=== PATIENT | female | born 1955 | race Caucasian/White ===

== ENCOUNTER 2024-08-01 12:39 | Observation (INO) | payer MEDICARE, SELFPAY ==
[2024-08-01] VITALS (9 sets, daily range): BP systolic 103–145; BP diastolic 70–97; PULSE 73–95; RESP 14–18; TEMP 36.1–37.1; O2SAT 95–99; BMI 36.6; BMI 36.3
--- NOTE | 2024-08-01 13:55 | EKG12_ITS ---
Test Reason : Blood Pressure : / mmHG Vent. Rate : 088 BPM Atrial Rate : 088 BPM P-R Int : 174 ms QRS Dur : 070 ms QT Int : 352 ms P-R-T Axes : 006 -42 007 degrees QTc Int : 425 ms Normal sinus rhythm Left axis deviation Low voltage QRS Cannot rule out Anterior infarct , age undetermined Abnormal ECG Confirmed by ELENA LANE, MANGO ([id number]), editor farm journal MATEO LOPEZ ([id number]) on 08/04/2024 1:55:28 PM Referred By: Confirmed By:MANGO PARKER MD
--- NOTE | 2024-08-01 13:55 | RAD_ITS ---
STUDY: X-RAY CHEST REASON FOR EXAM: Female, 68 years old. painful in chest when breathing TECHNIQUE: PA and lateral views of the chest. COMPARISON: None. FINDINGS: The lungs are clear and expanded. There is no demonstrated pleural abnormality. Normal size heart. Moderate-sized hiatal hernia. Normal visualized pulmonary arteries. Normal visualized aortic arch and descending thoracic aorta. Normal visualized thoracic spine. Normal visualized ribs, clavicles, and shoulders. There is no demonstrated abnormality of the visualized soft tissue structures of the upper abdomen. RAD/Chest PA and Lateral IMPRESSION: No active disease. Electronically Signed: Byron Suresh MD at 16:40 EDT ,
--- NOTE | 2024-08-01 13:57 | EDS_ITS ---
<Statement entered by Richard Quiroz, - 08/02/24 15:16> Supervisory Physician Note Patient was seen and examined with the Advanced Practice Provider. Nursing notes and vital signs have been reviewed. Pertinent old records have been reviewed. I agree with the essential elements of the NAVIN's history, physical exam, assessment, and plan. The differential diagnosis and management options were discussed with the NAVIN. I participated in determining and agree with the management, procedures, final impression and disposition as documented. See changes noted by me. Please see addendum or separate note for any additional details. 68-year-old female with no significant past medical history presents for evaluation of epigastric/chest pain as well as shortness of breath. Patient states that she recently returned from [place] which was a 17-hour car ride. Patient states 3 days ago she developed epigastric/chest pain. Pain is worse with inspiration. She endorses decreased appetite secondary to the pain. Denies any fever, chills, nausea, vomiting, diarrhea, constipation. Denies URI symptoms. Gen: A&O x3, NAD Head: Normocephalic, atraumatic Eyes: No sclera icterus, conjunctiva clear ENT: Moist mucous membranes Neck: Trachea midline, No JVD CV: RRR, no murmurs, no peripheral edema Resp: Lungs CTA BL, no w/r/c GI: Abd soft, non-distended, tender to palpation in the epigastrium and right upper quadrant, + voluntary guarding, no rebound or rigidity Musc: Full ROM, no deformity Skin: Warm, dry, non jaundice Neuro: Alert, oriented, grossly intact, sensation intact Psych: Cooperative, appropriate mood and affect Differential diagnosis includes but is not limited to gastritis, pancreatitis, cholecystitis, ACS, PE. IV fluids, Zofran, Toradol ordered for symptoms. CBC with leukocytosis of 17.5. No anemia. CMP shows dehydration without ALEAH. No transaminitis. Bilirubin elevated at 1.3. Troponin unremarkable. Lipase elevated at 385 which is consistent with pancreatitis. D-dimer elevated at 1.67. Given patient's shortness of breath with recent travel cannot rule out PE. CTA chest ordered. UA shows dirty sample given large squamous epithelial cells. However patient does have WBCs and bacteria. With her leukocytosis we will give IV Zosyn to cover for UTI as well as any GI pathology. CT abdomen pelvis shows large gastric hernia in the posterior mediastinum. Patient states she does have a history of a hernia. She has a lesion in the right anterior renal parenchymal however no follow-up necessary per radiology. Patient has sm all calcified gallstones layering in the dependent portion of the nondilated gallbladder. No gallbladder wall thickening or pericholecystic edema. Given patient's pancreatitis, tenderness in the right upper quadrant, and leukocytosis we will get ultrasound of the abdomen as this is better to assess for cholecystitis. CTA chest without PE. Ultrasound of the gallbladder shows moderate distention. Multiple gallstones. No dilation of the common bile duct per patient age. Patient still having abdominal pain. Patient will require admission for suspected gallstone pancreatitis. Hospitalist accepted admission. Impression: 1. Acute pancreatitis, suspect gallstone pancreatitis 2. UTI 3. Cholelithiasis 4. Large hiatal hernia 5. Dehydration HPI History of Present Illness Chief Complaint: Chest Pain Narrative Narrative: Patient is a 68-year-old female does not take any medications daily presenting to the emergency department for dyspnea, chest pain, low upper abdominal pain. Patient was recently in [place], he did drive 17 hours, patient was on amoxicillin recently secondary to a tooth infection. Patient states this Saturday which was 3 days ago, the patient continued to have this pain worse with inspiration. Patient denies any fever chills nausea or vomiting. Patient states she did have some generalized bodyaches. Denies any new cough. [facility] Medical History no medical history Home Medications ?Medication ?Instructions ?Recorded ?Last Taken ?Type NK 08/01/24 Unknown History Allergy/AdvReac Type Severity Reaction Status Date / Time No Known Allergies Allergy Verified 08/01/24 12:40 Family History no significant family his Surgical History no surgical history Social History Smoking Status: Never smoker ROS ROS ED ROS Narrative Constitutional: Negative for fever, chills, weight loss, weakness Eyes: Negative for vision loss, vision change, double vision ENT: Negative for any sore throat, ear pain, congestion Cardiovascular: Negative for any palpitations. Positive chest pain, tightness Respiratory: Negative for any cough, sputum production, hemoptysis, dyspnea on exertion, orthopnea. Positive for dyspnea, patient inspiration Gastrointestinal: Negative for any nausea, vomiting, diarrhea, constipation, blood in stool, blood in vomit. Positive for upper abdominal pain : Negative for any urinary frequency, dysuria, retention, blood in urine Muscle skeletal: Negative for any neck pain, back pain. Positive generalized myalgias Neurological: Negative for any headache, syncope, dizziness Skin: Negative for any rashes, itching, abrasions, lacerations Psychiatric: Negative for any depression, anxiety, stress, suicidal ideation, homicidal ideation Hematologic: Negative for any excessive bruising, easy bleeding EXAM Physical Exam Narrative Exam Narrative: Vital signs reviewed. Patient appeared to be in no obvious distress, patient speaking complete sentences. HEET: Head normocephalic atraumatic, TMs clear bilaterally. Posterior pharynx is clear, moist mucous membranes. Nares clear bilaterally. Neck: Supple with no lymphadenopathy or tenderness. No signs of meningismus. Cardiac: Regular rate and rhythm no murmurs gallops or rubs, equal peripheral pulses bilaterally. Respiratory: Rhonchorous breath sounds to bilateral lower lobes, no chest tenderness. Abdomen: Soft, nondistended. No abdominal bruit or pulsatile masses. No hepatosplenomegaly. Tenderness to the epigastric area Extremities: No peripheral edema, no signs of gross trauma or deformity. Active full range of motion of all extremities. Neuro: Cranial nerves II through XII intact, no focal neurological deficits. Skin: Clean dry and intact with no rash, purpura, petechiae, vesicles or pustules. Backs/flank: No CVA tenderness, no midline spinal tenderness, no deformity. Psych: Normal mood and affect. No SI, HI or acute psychosis. Const Vital Signs: 08/01/24 12:40 08/01/24 14:10 08/01/24 14:40 Temperature 97 F L Temperature Source Temporal Pulse Rate 93 73 Respiratory Rate 14 Respiratory Effort Normal Non-Labored Blood Pressure 137/89 H 120/86 H Blood Pressure Mean 105 97 Pulse Ox 99 98 Oxygen Delivery Method Room Air Room Air 08/01/24 16:00 08/01/24 18:00 Temperature Temperature Source Pulse Rate 86 78 Respiratory Rate Respiratory Effort Blood Pressure 140/84 H 145/97 H Blood Pressure Mean 102 113 Pulse Ox 96 96 Oxygen Delivery Method Room Air Room Air [facility] Lab Data Labs: Laboratory Results - last 24 hr 08/01/24 08/01/24 13:32 14:12 WBC 17.5 H RBC 4.55 Hgb 13.4 Hct 40.1 MCV 88.1 MCH 29.5 MCHC 33.4 RDW Std Deviation 46.2 H RDW Coeff of Corry 14.3 Plt Count 369 MPV 9.9 Immature Gran % (Auto) 0.500 Neut % (Auto) 77.8 H Lymph % (Auto) 11.5 L Loving % (Auto) 8.2 Eos % (Auto) 1.7 Baso % (Auto) 0.3 Absolute Neuts (auto) 13.6 H Absolute Lymphs (auto) 2.01 Nucleated RBC % 0 D-Dimer Quant (PE/DVT) 1.67 H* Sodium 133 L Potassium 3.3 L Chloride 100 Carbon Dioxide 26.0 Anion Gap 7 BUN 9 Creatinine 0.77 Estim Creat Clear Calc 73.86 Est GFR (MDRD) Af Amer 95 Est GFR (MDRD) Non-Af 79 BUN/Creatinine Ratio 11.7 Glucose 103 Calcium 9.6 Total Bilirubin 1.30 H AST 24 ALT 25 Alkaline Phosphatase 77 Troponin I High Sens 3 Total Protein 8.2 Albumin 3.7 Globulin 4.5 H Albumin/Globulin Ratio 0.8 L Lipase 385 H Urine Color Yellow Urine Clarity Sl. Cloudy Urine pH 6.0 Ur Specific [place] 1.020 Urine Protein 30 H Urine Glucose (UA) Normal Urine Ketones 50 H Urine Occult Blood 150 H Urine Nitrite Negative Urine Bilirubin Negative Urine Urobilinogen Normal Ur Leukocyte Esterase 500 H Urine RBC 5-10 SEEN Urine WBC 25-50 SEEN Ur Squamous Epith Cells 10-25 SEEN Ur Transition Epith Cell 5-10 SEEN Ur Renal Epithelial Cell 0-5 SEEN Urine Bacteria 2+ Urine Mucus 1+ Radiography Diagnostic Testing: Clinical Impression(s) from Imaging Studies Chest X-Ray 08/01/24 13:55 IMPRESSION: No active disease. Electronically Signed: Byron Suresh MD at 16:40 EDT , Abdomen/Pelvis CT 08/01/24 14:58 IMPRESSION: 1. Large gastric hernia in the posterior mediastinum. 2. Small nonenhancing low-attenuation lesion in the right anterior renal parenchyma is too small to confirm cystic or solid. ACR White Paper guidelines (Hussein, et al. JACR 2018; 15(2):264-273) suggest no follow-up is necessary. 3. Small calcified gallstones layering in the dependent portion of the nondilated gallbladder fossa without gallbladder wall thickening or pericholecystic edema. 4. No suspicious acute abnormality in the abdomen and pelvis. Electronically Signed: Roberto Webber MD at 16:08 EDT , Chest CTA 08/01/24 14:58 IMPRESSION: 1. No CTA evidence of pulmonary thromboemboli, thoracic aortic aneurysm or dissection. 2. No acute cardiopulmonary pathology. 3. Large gastric hernia in the posterior mediastinum. 4. And large right thyroid lobe containing multiple low-attenuation nodules. The dominant nodule measures 3.5 x 3.5 cm. ACR White Paper guidelines (Omar NicholsK, et al. JACR 2015;12(2):143-50) suggest further evaluation with thyroid ultrasound. Electronically Signed: Roberto Webber MD at 16:04 EDT , Gallbladder Ultrasound 08/01/24 16:23 IMPRESSION: 1. Multiple mobile gallstones. No sonographic Bah sign or ductal dilatation. No pericholecystic fluid. 2. Hepatomegaly without intrahepatic masses or ductal dilatation. 3. Normal appearance of the RIGHT kidney. 4. The pancreas is obscured due to shadowing bowel gas. Electronically Signed: Byron Novoa MD at 19:35 EDT , Treatment and Re-Evaluation :: Differential diagnosis includes however is not limited to: Pulmonary embolus, COVID-19, influenza, RSV, community-acquired pneumonia, acute cholecystitis Patient appears generally well, vital signs are stable, patient is nontoxic- appearing. Presenting to the emergency department complaints of pain with inspiration, epigastric pain, upper abdominal pain ever since the last 3 to 4 days. Secondary the patient's history of travel, I do believe that a D-dimer is necessary to rule out any pulmonary embolus. Patient received a troponin, as well as upper abdominal labs. Patient given IV fluids, IV Zofran, Toradol. Patient was given two-view chest x-ray. All radiologic examinations were read, reviewed by the emergency department attending. From these reads, a plan of care will be put in place. Patient's laboratory values showed a leukocytosis with white blood count of 17.5, patient's D-dimer was elevated 1.67, sodium 133 the potassium 3.3, total bilirubin was elevated at 1.3, lipase 385. There is concern for pancreatitis. However patient did have elevated D-dimer. At this time, patient will receive a CTA of the chest to rule out any pulmonary embolus, patient also receive a CT scan of the abdomen pelvis secondary to the elevated lipase as well as leukocytosis. Patient did receive a ultrasound of the right upper quadrant, multiple mobile gallstones, no sonographic Bah sign or ductal dilatation. No pericholecystic fluid. Hepatomegaly a without intrahepatic masses or ductal dilatation. Normal appearance of the right kidney. The pancreas is obscured due to shadowing of the bowel gas. I will reach out for admission. Patient be started on IV Zosyn, this will cover both any GI and urinalysis. Patient is stable for admission. Discharge Plan Triage Chief Complaint: Chest Pain ED Midlevel Provider: Ronny Walton ED Provider: Richard Quiroz Dx/Rx/DC Orders Clinical Impression: Chest pain, Acute pancreatitis, Acute UTI Prescriptions: No Action NK
[2024-08-01] MEDS: Ketorolac 15 MG/ML Vial IV (14:02)
[2024-08-01] MEDS: 0.9% Normal Saline (1000mL) 1,000 ML 999 ML IV (14:02)
[2024-08-01] MEDS: Ondansetron 4 MG/2 ML Vial IV (14:02)
[2024-08-01 14:06] LABS: Absolute Lymphocyte Count 2.01 X10^3/uL (0.83-4.51); Absolute Neutrophil Count 13.6 X10^3/uL (2.0-7.7); Basophil# 0.05 X10^3/uL; Basophil% 0.3 % (0-1); Eosinophils% 1.7 % (0-5); Hematocrit 40.1 % (37-47); Hemoglobin 13.4 g/dL (12.0-15.0); Lymphocyte # 2.01 X10^3/ul (0.83-4.51); Lymphocyte % 11.5 % (19-41); Mean Corp Hgb Conc 33.4 g/dL (32-36); Mean Corpuscular Hgb 29.5 pg (27.0-32.0); Mean Corpuscular Volume 88.1 fL (81-99); Mean Platelet Vol. 9.9 fl (6.2-12.0); Monocyte# 1.44 X10^3/uL; Monocyte% 8.2 % (0-10); NRBC Flagged by Analyzer 0 % (0-5); Neutrophil # 13.59 X10^3/uL (2.7-7.7); Neutrophil % 77.8 % (47-70); Platelet Count 369 K/mm3 (150-450); RBC Distribution Width CV 14.3 % (11.6-14.6); RBC Distribution Width SD 46.2 fl (35.1-43.9); Red Blood Count 4.55 M/mm3 (4.2-5.4); White Blood Count 17.5 K/mm3 (4.4-11.0)
[2024-08-01 14:20] LABS: Color, Urine Yellow (Yellow); Glucose, Dipstick Normal (Normal); Ketone-Dipstick 50 mg/dl (Negative); Leukocyte Esterase-Dipstick 500 /ul (Negative); Nitrite-Dipstick Negative (Negative); Occult Blood-Urine 150 /ul (Negative); Protein-Dipstick 30 mg/dl (Negative); Urine Bilirubin Dipstick Negative (Negative); Urine Clarity Sl. Cloudy (Clear); Urine Urobilinogen Normal (Normal)
[2024-08-01 14:30] LABS: ALB/GLOB Ratio 0.8 RATIO (0.9-2.4); AST(SGOT) 24 U/L (15-37); Alanine Aminotransfer ALT/SGPT 25 U/L (13-56); Albumin, Serum 3.7 g/dL (3.2-5.0); Alkaline Phosphatase 77 U/L (45-117); Anion Gap 7 (5-15); BUN 9 mg/dL (7-18); BUN/Creat Ratio 11.7 RATIO (10-20); Calcium,Total 9.6 mg/dL (8.5-10.1); Chloride 100 mmol/L (98-107); Creatinine, Serum 0.77 mg/dL (0.55-1.02); EST Glomerular Filtration Rate 79 mL/min (>60); Est Glom Filt Rate - Afr Amer 95 mL/min (>60); Estimated Creatinine Clearance 73.86 ml/min; Globulin 4.5 g/dL (2.2-4.2); Glucose 103 mg/dL (74-106); Lipase 385 U/L (13-75); Potassium 3.3 mmol/L (3.5-5.1); Protein, Total 8.2 g/dL (6.4-8.2); Sodium Level 133 mmol/L (136-145); Troponin-I HS 3 pg/mL (3.0-54.0)
[2024-08-01 14:39] LABS: White Blood Cells 25-50 SEEN /hpf (0-5)
[2024-08-01 14:40] LABS: Red Blood Cells-Urine 5-10 SEEN /hpf (0-5)
[2024-08-01 14:41] LABS: Squamous Epithelial Cells - UA 10-25 SEEN /hpf (5-10)
[2024-08-01 14:42] LABS: Bacteria 2+ /hpf (None Seen); Renal Epithelial Cells 0-5 SEEN /hpf (0-5); Transitional Epithelial - Ur 5-10 SEEN /hpf (0-5)
[2024-08-01 14:44] LABS: Mucous, Urine 1+ /hpf (<or=2+)
[2024-08-01 14:57] LABS: D-Dimer Quantitative (DVT/PE) 1.67 FEU/ug/m (0.27-0.49)
--- NOTE | 2024-08-01 14:58 | CT_ITS ---
EXAM: CT ANGIOGRAPHY CHEST WITHOUT AND WITH INTRAVENOUS CONTRAST CLINICAL INDICATION: elevated DImer TECHNIQUE: Helically acquired angiography images were obtained of the chest without and with intravenous contrast. This CT exam was performed using one or more of the following dose reduction techniques: automated exposure control, adjustment of the mA and/or kV according to patient size, and/or use of iterative reconstruction technique. MIP reconstructed images were created and reviewed. CONTRAST: IV 100mL Isovue-370 RADIATION DOSE: CTDIvol = 17.82 mGy, DLP = 1633.52 mGy-cm COMPARISON: No relevant prior studies available. FINDINGS: PULMONARY ARTERIES: Unremarkable. Normal in caliber. No evidence of pulmonary embolism. AORTA: Unremarkable. Normal in caliber. No evidence of dissection. GREAT VESSELS OF AORTIC ARCH: Unremarkable. Normal in caliber. No evidence of dissection. LUNGS AND PLEURAL SPACES: Enlarged right thyroid lobe containing multiple low-attenuation nodules. The dominant nodule measures 3.5 x 3.5 cm. This is causing tracheal shift to the left. No pleural effusion or thickening. No pneumothorax. HEART: Mild cardiomegaly. No pericardial effusion. No significant coronary artery calcifications. MEDIASTINUM: Unremarkable. No mediastinal or hilar adenopathy. Esophagus is unremarkable. No hiatal hernia. THYROID: Unremarkable. No thyroid lesions. 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 Anterior T9 benign vertebral body hemangioma. No lytic or blastic lesions. SOFT TISSUES: Large gastric hernia. CT/CTA Chest W/WO Contrast IMPRESSION: 1. No CTA evidence of pulmonary thromboemboli, thoracic aortic aneurysm or dissection. 2. No acute cardiopulmonary pathology. 3. Large gastric hernia in the posterior mediastinum. 4. And large right thyroid lobe containing multiple low-attenuation nodules. The dominant nodule measures 3.5 x 3.5 cm. ACR White Paper guidelines (Nelson JK, et al. JACR 2015;12(2):143-50) suggest further evaluation with thyroid ultrasound. Electronically Signed: Roberto Webber MD at 16:04 EDT ,
--- NOTE | 2024-08-01 14:58 | CT_ITS ---
EXAM: CT ABDOMEN AND PELVIS WITH INTRAVENOUS CONTRAST CLINICAL INDICATION: upper abdominal pain TECHNIQUE: Helically acquired images were obtained of the abdomen and pelvis with intravenous contrast. This CT exam was performed using one or more of the following dose reduction techniques: automated exposure control, adjustment of the mA and/or kV according to patient size, and/or use of iterative reconstruction technique. CONTRAST: IV 100mL Isovue-370 RADIATION DOSE: CTDIvol = 17.82 mGy, DLP = 1633.52 mGy-cm COMPARISON: No relevant prior studies available. FINDINGS: LOWER THORAX: Unremarkable. Lung bases are clear. No cardiomegaly. No significant pericardial effusion. ABDOMEN: LIVER: Unremarkable. Homogeneous. No focal mass. GALLBLADDER AND BILE DUCTS: Small calcified gallstones layering in the dependent portion of the gallbladder fossa. No intrahepatic or extrahepatic biliary ductal dilatation. No gallbladder distention or wall edema. PANCREAS: Unremarkable. No focal cystic or solid mass. SPLEEN: Unremarkable. Normal size without focal cystic or solid mass. ADRENALS: Unremarkable. No nodules. KIDNEYS AND URETERS: Small nonenhancing low-attenuation lesion in the right anterior renal parenchyma is too small to confirm cystic or solid. No stones or hydronephrosis in both kidneys. No mass in both kidneys. STOMACH AND BOWEL: Unremarkable. No stomach or bowel distention. No focal inflammatory change. PELVIS: APPENDIX: Normal. BLADDER: Unremarkable. REPRODUCTIVE: Unremarkable as visualized. No mass. ABDOMEN and PELVIS: INTRAPERITONEAL SPACE: Unremarkable. No ascites or other fluid collection. No free air. 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 Diffuse degenerative disc space height narrowing with degenerative vacuum phenomenon at T12-L1 down to L5-S1 disc space levels. No suspicious lytic or blastic abnormality. SOFT TISSUES: Large gastric hernia in the posterior mediastinum. VASCULATURE: Unremarkable. Abdominal aorta is non-dilated. LYMPH NODES: Unremarkable. No enlarged lymph nodes. CT/Abdomen/Pelvis W IV Cont ONLY IMPRESSION: 1. Large gastric hernia in the posterior mediastinum. 2. Small nonenhancing low-attenuation lesion in the right anterior renal parenchyma is too small to confirm cystic or solid. ACR White Paper guidelines (Hussein, et al. JACR 2018; 15(2):264-273) suggest no follow-up is necessary. 3. Small calcified gallstones layering in the dependent portion of the nondilated gallbladder fossa without gallbladder wall thickening or pericholecystic edema. 4. No suspicious acute abnormality in the abdomen and pelvis. Electronically Signed: Roberto Webber MD at 16:08 EDT ,
--- NOTE | 2024-08-01 14:58 | ED.RN ---
Critical D Dimer of 1.67. Physician and primary nurse notified.
--- NOTE | 2024-08-01 16:23 | US_ITS ---
INDICATION: PAIN EXAMINATION: Ultrasound US Abdomen Limited (quadrant) TECHNIQUE: Kam scale and color doppler imaging was performed of the right upper quadrant. COMPARISON: CT of 08/01/2024 FINDINGS: LIVER: Liver is moderately enlarged at 17.6 cm with heterogeneous echotexture. No hepatic masses or ductal dilatation. No focal hepatic lesion. There is no free fluid. GALLBLADDER AND BILIARY TREE: 1. Gallbladder is remarkable for moderate distention at 8.0 cm. Multiple gallstones are present. Gallbladder wall estimated at 3.6 mm mm. 2. The proximal common bile duct measures 4.7 mm, which is within normal limits for the patient''s age. Sonographic Bah''s sign: Negative. PANCREAS: Pancreas is obscured due to shadowing bowel gas. RIGHT kidney: RIGHT kidney has normal configuration, no solid or cystic masses or hydronephrosis. RIGHT kidney dimension: 10.4 x 4.9 x 4.1 cm renal cortex estimated at 1.6 cm. US/Gallbladder IMPRESSION: 1. Multiple mobile gallstones. No sonographic Bah sign or ductal dilatation. No pericholecystic fluid. 2. Hepatomegaly without intrahepatic masses or ductal dilatation. 3. Normal appearance of the RIGHT kidney. 4. The pancreas is obscured due to shadowing bowel gas. Electronically Signed: Byron Novoa MD at 19:35 EDT ,
[2024-08-01] MEDS: Morphine 4 MG/ML Syringe 2 MG IV (17:27)
--- NOTE | 2024-08-01 20:03 | PCM.HP.STD ---
HPI - General General Date of Admission: 08/01/24 Date of Service: 08/01/24 Chief Complaint: Chest Pain, Upper Abdominal Pain and SOB. HPI Narrative HARLEY SELLERS, is a 68 F with a past medical history of obesity; with BMI of 36.6 this admission, history of posterior gastric hernia; with chronic intermittent dysphagia, recent dental infection; treated with oral amoxicillin, history of hysterectomy, OA and history of avoiding medical attention who presents to [facility] ER complaining of chest pain, upper abdominal pain and SOB. Ms. Sellers reports her symptoms began approximately 3 days prior to admission when she first started to develop this pain in her chest and upper abdomen that began at rest and was worse with inspiration. She also admits to generalized body aches made worse after a 17-hour drive from [place] so she decided to come in for further evaluation and treatment. There was no report of fever, chills, nausea or vomiting but she does admit to generalized body aches. In the ER she was noted to have a UA positive for Acute Cystitis; with microscopic hematuria with a corresponding Leukocytosis of 17.5K present on admission complicated by an elevated serum Lipase of 358 U/L and mild Hyperbilirubinemia of 1.3 mg/dL present on admission consistent with suspected Pancreatitis; likely due to gallstones also noted on CT compounded by Hypokalemia of 3.3 mmol/L present on admission and an elevated d-dimer of 1.67 present on admission followed by a CTA of the chest negative for PE but positive for a Large Gastric Hernia in the posterior mediastinum along with an incidentally noted Large Right Thyroid Lobe containing multiple low-attenuation nodules with the dominant nodule measuring ~3.5 cm x 3.5 cm with further recommendation for thyroid ultrasound which is now pending. She was then admitted to the PCU for ongoing care for a stay that is expected to extend beyond 2 midnights. [facility] Medical History Tumor of thyroid Concussion Anemia Medical History no medical history Home Medications ?Medication ?Instructions ?Recorded ?Last Taken ?Type NK 08/01/24 Unknown History Allergy/AdvReac Type Severity Reaction Status Date / Time No Known Allergies Allergy Verified 08/01/24 12:40 Family History no significant family his Surgical History H/O: hysterectomy Surgical History no surgical history Social History Smoking Status: Never smoker ROS ROS Narrative Review of systems: General: Patient denies fever or chills. HENT: Denies headache, denies stuffy nose, denies sore throat EYES: Denies changes in vision or discharge from eyes Resp: Patient admits to shortness of breath and pleuritic chest discomfort made worse with deep breathing as per HPI. Cardiac: Patient admits to chest pain with a sensation of tightness but she denies palpitations or heart racing. GI: Patient admits to upper abdominal pain, denies changes in bowel, had some nausea but denies vomiting. : Denies changes in urination Extremity: Denies swelling Musculoskeletal: Feels somewhat generally weak and unwell with generalized myalgias. Neuro: Patient denies headache, paresthesias or focal neurologic deficits. Heme: Denies easy bleeding or bruising Skin: Denies rashes Psychiatric: No complaints voiced related to uncontrolled depression or anxiety Endocrine: No polyuria, polydipsia or polyphagia The rest of the 14 point ROS was negative except for positives in HPI. Vital Signs Vital Signs Vital Signs: 08/01/24 12:40 08/01/24 14:10 08/01/24 14:40 Temperature 97 F L Temperature Source Temporal Pulse Rate 93 73 Respiratory Rate 14 Respiratory Effort Normal Non-Labored Blood Pressure 137/89 H 120/86 H Blood Pressure Mean 105 97 Pulse Ox 99 98 Oxygen Delivery Method Room Air Room Air 08/01/24 16:00 08/01/24 18:00 Temperature Temperature Source Pulse Rate 86 78 Respiratory Rate Respiratory Effort Blood Pressure 140/84 H 145/97 H Blood Pressure Mean 102 113 Pulse Ox 96 96 Oxygen Delivery Method Room Air Room Air Weight Weight: 213 lb 2.992 oz Body Mass Index (BMI) 36.6 Physical Exam Const alert, oriented x3, no apparent distress, average body habitus and healthy appearing General Appearance: cooperative HEENT normocephalic, head/scalp atraumatic, hearing grossly normal bilaterally and moist oral mucous membranes Eyes PERRL and EOMs intact bilaterally Neck no lymphadenopathy and supple Resp normal respiratory effort, no retractions, no use of accessory muscles and clear to auscultation bilaterally Cardio regular rate and regular rhythm GI normal to inspection, nondistended, normoactive bowel sounds and soft to palpation GI Narrative: Patient is tender to palpation over the epigastric area. Extremity normal to inspection, full ROM and no clubbing, cyanosis or edema Skin Skin Narrative: Patient has no evidence of rash, abscess or jaundice. Neuro oriented x3, CN's II-XII intact bilaterally, moves all extremities and no focal motor deficits Sensorium / Orientation: awake, alert, oriented to person, oriented to place and oriented to time Psych affect normal Results Medical Records Data Attestation: I reviewed the patient's medical records Lab / Micro Data Attestation: I reviewed the patient's lab results. 08/01/24 13:32 08/01/24 13:32 Labs: Laboratory Results - last 24 hr 08/01/24 13:32: WBC 17.5 H, RBC 4.55, Hgb 13.4, Hct 40.1, MCV 88.1, MCH 29.5, MCHC 33.4, RDW Std Deviation 46.2 H, RDW Coeff of [place] 14.3, Plt Count 369, MPV 9.9, Immature Gran % (Auto) 0.500, Neut % (Auto) 77.8 H, Lymph % (Auto) 11.5 L, [place] % (Auto) 8.2, Eos % (Auto) 1.7, Baso % (Auto) 0.3, Absolute Neuts (auto) 13.6 H, Absolute Lymphs (auto) 2.01, Nucleated RBC % 0, D-Dimer Quant (PE/DVT) 1.67 H*, Sodium 133 L, Potassium 3.3 L, Chloride 100, Carbon Dioxide 26.0, Anion Gap 7, BUN 9, Creatinine 0.77, Estim Creat Clear Calc 73.86, Est GFR (MDRD) Af Amer 95, Est GFR (MDRD) Non-Af 79, BUN/Creatinine Ratio 11.7, Glucose 103, Calcium 9.6, Total Bilirubin 1.30 H, AST 24, ALT 25, Alkaline Phosphatase 77, Troponin I High Sens 3, Total Protein 8.2, Albumin 3.7, Globulin 4.5 H, Albumin/Globulin Ratio 0.8 L, Lipase 385 H 08/01/24 14:12: Urine Color Yellow, Urine Clarity Sl. Cloudy, Urine pH 6.0, Ur Specific [place] 1.020, Urine Protein 30 H, Urine Glucose (UA) Normal, Urine Ketones 50 H, Urine Occult Blood 150 H, Urine Nitrite Negative, Urine Bilirubin Negative, Urine Urobilinogen Normal, Ur Leukocyte Esterase 500 H, Urine RBC 5-10 SEEN, Urine WBC 25-50 SEEN, Ur Squamous Epith Cells 10-25 SEEN, Ur Transition Epith Cell 5-10 SEEN, Ur Renal Epithelial Cell 0-5 SEEN, Urine Bacteria 2+, Urine Mucus 1+ Micro: Microbiology 08/01/24 14:07 Mucosa - Nose SARS-CoV-2, Influenza & RSV (PCR) - Final Imaging Radiology Impression Chest X-Ray 08/01/24 13:55 IMPRESSION: No active disease. Electronically Signed: Byron Suresh MD at 16:40 EDT , Abdomen/Pelvis CT 08/01/24 14:58 IMPRESSION: 1. Large gastric hernia in the posterior mediastinum. 2. Small nonenhancing low-attenuation lesion in the right anterior renal parenchyma is too small to confirm cystic or solid. ACR White Paper guidelines (Herts, et al. JACR 2018; 15(2):264-273) suggest no follow-up is necessary. 3. Small calcified gallstones layering in the dependent portion of the nondilated gallbladder fossa without gallbladder wall thickening or pericholecystic edema. 4. No suspicious acute abnormality in the abdomen and pelvis. Electronically Signed: Roberto Webber MD at 16:08 EDT , Chest CTA 08/01/24 14:58 IMPRESSION: 1. No CTA evidence of pulmonary thromboemboli, thoracic aortic aneurysm or dissection. 2. No acute cardiopulmonary pathology. 3. Large gastric hernia in the posterior mediastinum. 4. And large right thyroid lobe containing multiple low-attenuation nodules. The dominant nodule measures 3.5 x 3.5 cm. ACR White Paper guidelines (Omar TONG, et al. JACR 2015;12(2):143-50) suggest further evaluation with thyroid ultrasound. Electronically Signed: Roberto Webber MD at 16:04 EDT , Gallbladder Ultrasound 08/01/24 16:23 IMPRESSION: 1. Multiple mobile gallstones. No sonographic Bah sign or ductal dilatation. No pericholecystic fluid. 2. Hepatomegaly without intrahepatic masses or ductal dilatation. 3. Normal appearance of the RIGHT kidney. 4. The pancreas is obscured due to shadowing bowel gas. Electronically Signed: Byron Novoa MD at 19:35 EDT , Assessment & Plan Assessment/Plan (1) Acute cystitis with hematuria: (2) Leukocytosis: QUALIFIERS: Leukocytosis type: unspecified Qualified Code(s): D72.829 - Elevated white blood cell count, unspecified (3) Pancreatitis: QUALIFIERS: Chronicity: acute Pancreatitis type: unspecified pancreatitis type Acute pancreatitis complication: no infection or necrosis Qualified Code(s): K85.90 - Acute pancreatitis without necrosis or infection, unspecified (4) Hypokalemia: (5) Thyroid nodule greater than or equal to 1 cm in diameter incidentally noted on imaging study: (6) Obesity (BMI 30-39.9): PLAN: Plan 1. Acute cystitis; with microscopic hematuria and leukocytosis of 17.5 K present on admission - Admit to PCU. Continue empiric IV Zosyn begun in the ER and await culture and sensitivity data. Give Toradol IV prn for [id number] (level 1-5/10) pain or fever. Give Morphine IV prn for severe (level 6-10/10) pain. 2. Elevated lipase of 385 U/L present on admission with epigastric abdominal pain consistent with suspected acute pancreatitis with mild hyperbilirubinemia of 1.3 mg/dL present on admission complicating #1 - Keep NPO for now. Aggressively volume resuscitate and check MRCP with gallstones noted on CT. Give Zofran IV prn for nausea. 3. Pleuritic chest pain with shortness of breath and elevated D-dimer of 1.67 present on admission with CTA of chest negative for PE but positive for a large gastric hernia in the posterior mediastinum compounding #1 & #2 - Give Protonix 40 mg IV BID and consult gastroenterology to see this patient on-rounds in the AM for further recommendations with help appreciated in advance. 4. CT evidence of large Right thyroid lobe containing multiple low-attenuation nodules with the dominant nodule measuring ~3.5 x ~3.5 cm - Check TSH and Thyroid ultrasound. 5. Mild hypokalemia of 3.3 mmol/L present on admission - Give supplemental IV KCl and then recheck level in AM to confirm repletion. 5. Obesity; with BMI of 36.6 present on admission adding to the pathology of #1 - #4 - Weight loss will be recommended. 6. Recent dental infection; treated with oral Amoxicillin - Noted. 7. OA - Give IV Toradol prn. 8. DVT prophylaxis - Lovenox 40 mg sq daily plus SCD's. Total time: Approximately 75 minutes. Charges/Coding Visit Charges Inpatient E&M: 00090 Init Hosp L3
[2024-08-01] MEDS: Piperacil/Tazobactam 3.375 GM in 0.9% Normal Saline (50mL MB+) 50 ML IV (20:41)
[2024-08-01] MEDS: KCL 20MEQ in 0.9% NS 20 MEQ/1,000 ML IV.SOLN. 100 MEQ IV (23:32)
[2024-08-01] MEDS: Pantoprazole Sodium 40 MG in 0.9% Normal Saline (100mL MB+) 100 ML 330 MG IV (23:40)
[2024-08-02 03:00] VITALS: BP 145/73; PULSE 92; RESP 16; TEMP 36.9; O2SAT 97
[2024-08-02 05:29] VITALS: BMI 36.3
[2024-08-02] MEDS: Piperacil/Tazobactam 3.375 GM in 0.9% Normal Saline (50mL MB+) 50 ML IV ×3 (05:41→20:57)
[2024-08-02 05:45] LABS: Absolute Lymphocyte Count 1.47 X10^3/uL (0.83-4.51); Absolute Neutrophil Count 8.4 X10^3/uL (2.0-7.7); Basophil# 0.05 X10^3/uL; Basophil% 0.4 % (0-1); Eosinophil# 0.57 X10^3/uL; Eosinophils% 4.9 % (0-5); Hematocrit 36.4 % (37-47); Hemoglobin 11.8 g/dL (12.0-15.0); Lymphocyte # 1.47 X10^3/ul (0.83-4.51); Lymphocyte % 12.6 % (19-41); Mean Corp Hgb Conc 32.4 g/dL (32-36); Mean Corpuscular Hgb 29.4 pg (27.0-32.0); Mean Corpuscular Volume 90.5 fL (81-99); Mean Platelet Vol. 9.4 fl (6.2-12.0); Monocyte# 1.16 X10^3/uL; Monocyte% 9.9 % (0-10); NRBC Flagged by Analyzer 0 % (0-5); Neutrophil # 8.37 X10^3/uL (2.7-7.7); Neutrophil % 71.6 % (47-70); Platelet Count 327 K/mm3 (150-450); RBC Distribution Width CV 14.6 % (11.6-14.6); RBC Distribution Width SD 48.6 fl (35.1-43.9); Red Blood Count 4.02 M/mm3 (4.2-5.4); White Blood Count 11.7 K/mm3 (4.4-11.0)
[2024-08-02 06:15] LABS: ALB/GLOB Ratio 0.8 RATIO (0.9-2.4); AST(SGOT) 17 U/L (15-37); Alanine Aminotransfer ALT/SGPT 19 U/L (13-56); Albumin, Serum 2.8 g/dL (3.2-5.0); Alkaline Phosphatase 65 U/L (45-117); Anion Gap 7 (5-15); BUN 11 mg/dL (7-18); Calcium,Total 8.6 mg/dL (8.5-10.1); Chloride 108 mmol/L (98-107); Creatinine, Serum 0.65 mg/dL (0.55-1.02); EST Glomerular Filtration Rate 96 mL/min (>60); Est Glom Filt Rate - Afr Amer 116 mL/min (>60); Estimated Creatinine Clearance 73.61 ml/min; Globulin 3.7 g/dL (2.2-4.2); Glucose 86 mg/dL (74-106); Magnesium 2.2 mg/dL (1.6-2.6); Phosphorus 2.2 mg/dL (2.5-4.9); Potassium 3.6 mmol/L (3.5-5.1); Protein, Total 6.5 g/dL (6.4-8.2); Sodium Level 138 mmol/L (136-145)
[2024-08-02 09:00] VITALS: BP 121/77; PULSE 81; RESP 16; TEMP 36.4; O2SAT 94
--- NOTE | 2024-08-02 09:00 | MRI_ITS ---
STUDY: MR CHOLANGIOPANCREATOGRAPHY (MRCP) REASON FOR EXAM: Female, 68 years old. PANCREATITIS Acute pancreatitis with gallstones on CT. TECHNIQUE: Standard MRCP technique was utilized. 3-D postprocessing images were obtained. COMPARISON: 08.01.24 ct. FINDINGS: Large hiatal hernia. Cyst in the right kidney. Degenerative findings in the lumbar spine. Gall Bladder: There are multiple gallstones. Cystic duct: Normal with no demonstrated fixed filling defect. Intrahepatic ducts: Normal visualized intrahepatic ducts with no demonstrated fixed filling defect, dilation or stricture. Common hepatic duct: Normal with no demonstrated fixed filling defect, dilation or stricture. Common bile duct: Normal with no demonstrated fixed filling defect, dilation or stricture. Pancreatic duct: Normal with no demonstrated fixed filling defect, dilation or stricture. Inflammation around the pancreas. MRI/MRCP Abdomen without Contrast IMPRESSION: Gallstones. Acute pancreatitis. Electronically Signed: Triston Millan MD at 15:12 EDT ,
--- NOTE | 2024-08-02 09:17 | PN.HOSP_ITS ---
Reason for Visit Reason for Visit: Diagnoses Elevated white blood cell count, unspecified (08/01/24) Nontoxic single thyroid nodule (08/01/24) Obesity, unspecified (08/01/24) Hypokalemia (08/01/24) Acute pancreatitis without necrosis or infection, unspecified (08/01/24) Acute cystitis with hematuria (08/01/24) Subjective Subjective Feeling okay. No further nausea. initially reports then patient supported that she does have issues sometimes swallowing sugar with meats. Objective Data Objective Data Vital Signs: Vital Signs Temp Pulse Resp BP Pulse Ox O2 Del Method 36.9 C 92 16 145/73 H 97 Room Air 08/02/24 03:00 08/02/24 03:00 08/02/24 03:00 08/02/24 03:00 08/02/24 03:00 08/02/24 03:00 Oxygen Delivery Method Room Air Weight: 96.1 kg Body Mass Index (BMI) 36.3 Intake & Output: Intake and Output for Last 24 Hours 07/31/24 08/01/24 08/02/24 23:59 23:59 23:59 Intake Total 1050 / 1160 110 / 110 Output Total 0 / 0 Balance 1050 / 1160 110 / 110 Lab / Micro Data 08/02/24 05:16 08/02/24 05:16 Labs: Laboratory Results - last 24 hr 08/01/24 13:32: WBC 17.5 H, RBC 4.55, Hgb 13.4, Hct 40.1, MCV 88.1, MCH 29.5, MCHC 33.4, RDW Std Deviation 46.2 H, RDW Coeff of [place] 14.3, Plt Count 369, MPV 9.9, Immature Gran % (Auto) 0.500, Neut % (Auto) 77.8 H, Lymph % (Auto) 11.5 L, [place] % (Auto) 8.2, Eos % (Auto) 1.7, Baso % (Auto) 0.3, Absolute Neuts (auto) 13.6 H, Absolute Lymphs (auto) 2.01, Nucleated RBC % 0, D-Dimer Quant (PE/DVT) 1.67 H*, Sodium 133 L, Potassium 3.3 L, Chloride 100, Carbon Dioxide 26.0, Anion Gap 7, BUN 9, Creatinine 0.77, Estim Creat Clear Calc 73.86, Est GFR (MDRD) Af Amer 95, Est GFR (MDRD) Non-Af 79, BUN/Creatinine Ratio 11.7, Glucose 103, Calcium 9.6, Total Bilirubin 1.30 H, AST 24, ALT 25, Alkaline Phosphatase 77, Troponin I High Sens 3, Total Protein 8.2, Albumin 3.7, Globulin 4.5 H, A lbumin/Globulin Ratio 0.8 L, Lipase 385 H, TSH 5.760 H 08/01/24 14:12: Urine Color Yellow, Urine Clarity Sl. Cloudy, Urine pH 6.0, Ur Specific [place] 1.020, Urine Protein 30 H, Urine Glucose (UA) Normal, Urine Ketones 50 H, Urine Occult Blood 150 H, Urine Nitrite Negative, Urine Bilirubin Negative, Urine Urobilinogen Normal, Ur Leukocyte Esterase 500 H, Urine RBC 5-10 SEEN, Urine WBC 25-50 SEEN, Ur Squamous Epith Cells 10-25 SEEN, Ur Transition Epith Cell 5-10 SEEN, Ur Renal Epithelial Cell 0-5 SEEN, Urine Bacteria 2+, Urine Mucus 1+ 08/02/24 05:16: WBC 11.7 H, RBC 4.02 L, Hgb 11.8 L, Hct 36.4 L, MCV 90.5, MCH 29.4, MCHC 32.4, RDW Std Deviation 48.6 H, RDW Coeff of [place] 14.6, Plt Count 327, MPV 9.4, Immature Gran % (Auto) 0.600, Neut % (Auto) 71.6 H, Lymph % (Auto) 12.6 L, [place] % (Auto) 9.9, Eos % (Auto) 4.9, Baso % (Auto) 0.4, Absolute Neuts (auto) 8.4 H, Absolute Lymphs (auto) 1.47, Nucleated RBC % 0, Sodium 138, Potassium 3.6, Chloride 108 H, Carbon Dioxide 23.0, Anion Gap 7, BUN 11, Creatinine 0.65, Estim Creat Clear Calc 73.61, Est GFR (MDRD) Af Amer 116, Est GFR (MDRD) Non-Af 96, BUN/Creatinine Ratio 17.0, Glucose 86, Calcium 8.6, Phosphorus 2.2 L, Magnesium 2.2, Total Bilirubin 0.70, AST 17, ALT 19, Alkaline Phosphatase 65, Total Protein 6.5, Albumin 2.8 L, Globulin 3.7, Albumin/Globulin Ratio 0.8 L Micro: Microbiology 08/01/24 14:12 Urine, Clean Catch Urine Culture - Preliminary Gram negative sarah 08/01/24 14:07 Mucosa - Nose SARS-CoV-2, Influenza & RSV (PCR) - Final Radiography Diagnostic Testing: Radiology Impression Chest X-Ray 08/01/24 13:55 IMPRESSION: No active disease. Electronically Signed: Byron Suresh MD at 16:40 EDT , Abdomen/Pelvis CT 08/01/24 14:58 IMPRESSION: 1. Large gastric hernia in the posterior mediastinum. 2. Small nonenhancing low-attenuation lesion in the right anterior renal parenchyma is too small to confirm cystic or solid. ACR White Paper guidelines (Herts, et al. JACR 2018; 15(2):264-273) suggest no follow-up is necessary. 3. Small calcified gallstones layering in the dependent portion of the nondilated gallbladder fossa without gallbladder wall thickening or pericholecystic edema. 4. No suspicious acute abnormality in the abdomen and pelvis. Electronically Signed: Roberto Webber MD at 16:08 EDT , Chest CTA 08/01/24 14:58 IMPRESSION: 1. No CTA evidence of pulmonary thromboemboli, thoracic aortic aneurysm or dissection. 2. No acute cardiopulmonary pathology. 3. Large gastric hernia in the posterior mediastinum. 4. And large right thyroid lobe containing multiple low-attenuation nodules. The dominant nodule measures 3.5 x 3.5 cm. ACR White Paper guidelines (Omar TONG, et al. JACR 2015;12(2):143-50) suggest further evaluation with thyroid ultrasound. Electronically Signed: Roberto Webber MD at 16:04 EDT , Gallbladder Ultrasound 08/01/24 16:23 IMPRESSION: 1. Multiple mobile gallstones. No sonographic Bah sign or ductal dilatation. No pericholecystic fluid. 2. Hepatomegaly without intrahepatic masses or ductal dilatation. 3. Normal appearance of the RIGHT kidney. 4. The pancreas is obscured due to shadowing bowel gas. Electronically Signed: Byron Novoa MD at 19:35 EDT , Physical Exam Const alert and no apparent distress Cardio regular rate, regular rhythm, S1 normal heart sound and S2 normal heart sound GI normal to inspection, nondistended, normoactive bowel sounds, soft to palpation and non-distended GI Narrative: Epigastric abdominal tenderness. Extremity normal to inspection and full ROM Neuro Sensorium / Orientation: awake and alert Assessment & Plan Assessment/Plan (1) Acute cystitis with hematuria: (2) Leukocytosis: QUALIFIERS: Leukocytosis type: unspecified Qualified Code(s): D 72.829 - Elevated white blood cell count, unspecified (3) Pancreatitis: QUALIFIERS: Acute pancreatitis complication: no infection or necrosis Chronicity: acute Pancreatitis type: unspecified pancreatitis type Q ualified Code(s): K85.90 - Acute pancreatitis without necrosis or infection, unspecified (4) Hypokalemia: (5) Thyroid nodule greater than or equal to 1 cm in diameter incidentally noted on imaging study: (6) Obesity (BMI 30-39.9): PLAN: Plan UTI: * abnormal UA. UCx growing out GNR * on pip/tazo Possible acute pancreatitis. * RUQ US shows multiple mobile GS. No sonographic Bah sign nor ductal dilation. No pericholecystic fluid. * MRCP ordered Chest pain * likely 2/2 large H/H * GI on consult. * CTA chest negative for PE/dissection Thyroid nodules * TSH elevated. Free T4 within normal limits. * Thyroid ultrasound Dysphagia * Chronic * GI consult * Consult speech therapy VTE prophylaxis: LMWH Charges/Coding Visit Charges Inpatient E&M: 61305 Subs Hosp L2
[2024-08-02 09:57] LABS: T4 Free Direct 0.92 ng/dL (0.76-1.46)
[2024-08-02] MEDS: Pantoprazole Sodium 40 MG in 0.9% Normal Saline (100mL MB+) 100 ML 330 MG IV ×2 (10:10→19:36)
[2024-08-02] MEDS: KCL 20MEQ in 0.9% NS 20 MEQ/1,000 ML IV.SOLN. 100 MEQ IV ×2 (10:10→20:57)
[2024-08-02] MEDS: Enoxaparin 40 MG/0.4 ML Syringe SC (11:55)
[2024-08-02] MEDS: 0.9% Saline Lock 10 ML Syringe IV (13:52)
[2024-08-02 15:00] VITALS: BP 122/69; PULSE 76; RESP 16; TEMP 36.7; O2SAT 97
--- NOTE | 2024-08-02 19:40 | CON.PCM.GI_ITS ---
HPI Consult Data Date of Consult: 08/02/24 HPI Narrative Reason for Consultation: Hiatal hernia and pancreatitis HPI Narrative: HARLEY SELLERS, is a 68 F who presents with worsening epigastric pain and right upper quadrant pain. She has a a past medical history of history of hiatal hernia; with chronic intermittent dysphagia, recent dental infection; treated with oral amoxicillin, history of hysterectomy, OA and history of avoiding medical attention who presents to [facility] ER complaining of chest pain, upper abdominal pain and SOB. Ms. Sellers reports her symptoms began approximately 3 days prior to admission when she first started to develop this pain in her chest and upper abdomen that began at rest and was worse with inspiration. She also admits to generalized body aches made worse after a 17-hour drive from [place] so she decided to come in for further evaluation and treatment. There was no report of fever, chills, nausea or vomiting but she does admit to generalized body aches. In the ER she was noted to have a UA positive for Acute Cystitis; with microscopic hematuria with a corresponding Leukocytosis of 17.5K present on admission complicated by an elevated serum Lipase of 358 U/L and mild Hyperbilirubinemia of 1.3 mg/dL present on admission consistent with suspected Pancreatitis. Possibly due to gallstones also noted on CT compounded by Hypokalemia of 3.3 mmol/L present on admission and an elevated d-dimer of 1.67 present on admission followed by a CTA of the chest negative for PE but positive for a Large Gastric Hernia in the posterior mediastinum along with an incidentally noted Large Right Thyroid Lobe containing multiple low-attenuation nodules with the dominant nodule measuring ~3.5 cm x 3.5 cm with further recommendation for thyroid ultrasound [facility] Medical History Tumor of thyroid Concussion Anemia Medical History no medical history Home Medications ?Medication ?Instructions ?Recorded ?Last Taken ?Type NK 08/01/24 Unknown History Allergy/AdvReac Type Severity Reaction Status Date / Time No Known Allergies Allergy Verified 08/01/24 12:40 Family History no significant family his Surgical History H/O: hysterectomy Surgical History no surgical history Social History Smoking Status: Never smoker ROS ROS Narrative Review of systems: General: Patient denies fever or chills. HENT: Denies headache, denies stuffy nose, denies sore throat EYES: Denies changes in vision or discharge from eyes Resp: Patient admits to shortness of breath and pleuritic chest discomfort made worse with deep breathing as per HPI. Cardiac: Patient admits to chest pain with a sensation of tightness but she denies palpitations or heart racing. GI: Patient admits to upper abdominal pain, denies changes in bowel, had some nausea but denies vomiting. : Denies changes in urination Extremity: Denies swelling Musculoskeletal: Feels somewhat generally weak and unwell with generalized myalgias. Neuro: Patient denies headache, paresthesias or focal neurologic deficits. Heme: Denies easy bleeding or bruising Skin: Denies rashes Psychiatric: No complaints voiced related to uncontrolled depression or anxiety Endocrine: No polyuria, polydipsia or polyphagia The rest of the 14 point ROS was negative except for positives in HPI. Physical Exam Const alert and no apparent distress Cardio regular rate, regular rhythm, S1 normal heart sound and S2 normal heart sound GI normal to inspection, nondistended, normoactive bowel sounds, soft to palpation and non-distended GI Narrative: Epigastric abdominal tenderness. Extremity normal to inspection and full ROM Neuro Sensorium / Orientation: awake and alert Lab / Micro Data 08/02/24 05:16 08/02/24 05:16 Labs: Laboratory Results - last 24 hr 08/01/24 13:32: TSH 5.760 H 08/02/24 05:16: WBC 11.7 H, RBC 4.02 L, Hgb 11.8 L, Hct 36.4 L, MCV 90.5, MCH 29.4, MCHC 32.4, RDW Std Deviation 48.6 H, RDW Coeff of Corry 14.6, Plt Count 327, MPV 9.4, Immature Gran % (Auto) 0.600, Neut % (Auto) 71.6 H, Lymph % (Auto) 12.6 L, [place] % (Auto) 9.9, Eos % (Auto) 4.9, Baso % (Auto) 0.4, Absolute Neuts (auto) 8.4 H, Absolute Lymphs (auto) 1.47, Nucleated RBC % 0, Sodium 138, Potassium 3.6, Chloride 108 H, Carbon Dioxide 23.0, Anion Gap 7, BUN 11, Creatinine 0.65, Estim Creat Clear Calc 73.61, Est GFR (MDRD) Af Amer 116, Est GFR (MDRD) Non-Af 96, BUN/Creatinine Ratio 17.0, Glucose 86, Calcium 8.6, Phosphorus 2.2 L, Magnesium 2.2, Total Bilirubin 0.70, AST 17, ALT 19, Alkaline Phosphatase 65, Total Protein 6.5, Albumin 2.8 L, Globulin 3.7, Albumin/Globulin Ratio 0.8 L, Free T4 0.92 Micro: Microbiology 08/01/24 14:12 Urine, Clean Catch Urine Culture - Preliminary Gram negative sarah 08/01/24 14:07 Mucosa - Nose SARS-CoV-2, Influenza & RSV (PCR) - Final Imaging Radiology Impression MRCP 08/02/24 09:00 IMPRESSION: Gallstones. Acute pancreatitis. Electronically Signed: Triston Millan MD at 15:12 EDT Reading Location ID and State: [facility] / [place] , Service support , Assessment & Plan Assessment/Plan (1) Acute cystitis with hematuria: (2) Leukocytosis: QUALIFIERS: Leukocytosis type: unspecified Qualified Code(s): D 72.829 - Elevated white blood cell count, unspecified (3) Pancreatitis: QUALIFIERS: Chronicity: acute Pancreatitis type: unspecified pancreatitis type Acute pancreatitis complication: no infection or necrosis Q ualified Code(s): K85.90 - Acute pancreatitis without necrosis or infection, unspecified (4) Hypokalemia: (5) Thyroid nodule greater than or equal to 1 cm in diameter incidentally noted on imaging study: (6) Obesity (BMI 30-39.9): PLAN: Plan 68-year-old with past medical history of large hiatal hernia presents with chest pain and abdominal pain and discovered to have findings consistent with acute pancreatitis and imaging confirming large hiatal hernia. Elevated lipase of 385 U/L present on admission with epigastric abdominal pain consistent with suspected acute pancreatitis with mild hyperbilirubinemia of 1.3 mg/dL. Current MRI shows pancreatic divisum. Imaging with MRI CT scan and ultrasound show gallstones but no ductal dilation and she has had no elevation of alkaline phosphatase which is the most sensitive marker for any biliary involvement and gallstone pancreatitis. Also her LFTs are normal. I think either she developed pancreatitis from pancreatic divisum or her elevated lipase is from her stomach. You can produce some lipase from the small bowel and stomach. Currently now she is getting a lot better and is tolerating a diet with clear liquids. I will advance to as tolerated. I would also add pancreatic enzymes. I had a long talk with the family regarding her large hiatal hernia. That does not need to be addressed during this current admission. I think she would need manometry along with gastric emptying study and possibly upper GI small bowel follow-through to determine the best course of action with her hiatal hernia. Charges/Coding Visit Charges Inpatient E&M: 02471 Init Hosp L3
[2024-08-02 21:00] VITALS: BP 114/78; PULSE 89; RESP 14; TEMP 36.3; O2SAT 97
[2024-08-02] MEDS: Ketorolac 15 MG/ML Vial IV (21:01)
--- NOTE | 2024-08-03 | US_ITS ---
INDICATION: Large right thyroid nodule EXAMINATION: Ultrasound US Thyroid (eg thyroid, parathyroid, parotid) TECHNIQUE: Kam scale and color doppler imaging was performed of the thyroid gland. COMPARISON: CTA chest 08/01/2024 FINDINGS: RIGHT THYROID LOBE: 6.2 x 3.7 x 3.4 cm. Heterogenous echotexture with normal vascularity. [No dominant nodule lower pole measures 3.8 x 3.6 x 3.4 cm, solid, isoechoic and wider than tall with smooth margins and no internal echogenic foci, TI RADS level 3 or mildly suspicious. Second nodule upper pole is solid, hyperechoic, wider than tall with smooth margins and no internal echogenic foci, TI RADS level 3 or mildly suspicious. LEFT THYROID LOBE: 5.7 x 2.2 x 2.1 cm. Heterogenous echotexture with normal vascularity. [5 mm lower pole cyst. Upper pole hypoechoic cystic lesion measures 7 x 5 x 3 mm, wider than tall with smooth margins and no internal echogenic foci, TI RADS level 2 or nonsuspicious. ISTHMUS: 2.5 mm. No thyroid nodules are present. US/Thyroid IMPRESSION: Enlarged right lobe thyroid with 2 dominant nodules which are of mild suspicion for malignancy. Due to their size fine-needle aspiration of both nodules should be considered. Electronically Signed: Christian Jurado MD at 15:36 EDT ,
[2024-08-03 03:00] VITALS: BP 133/83; PULSE 74; RESP 12; TEMP 36.6; O2SAT 97
[2024-08-03] MEDS: 0.9% Normal Saline (250mL Bag) 250 ML 15 ML IV (04:28)
[2024-08-03] MEDS: Piperacil/Tazobactam 3.375 GM in 0.9% Normal Saline (50mL MB+) 50 ML IV (04:28)
[2024-08-03] MEDS: KCL 20MEQ in 0.9% NS 20 MEQ/1,000 ML IV.SOLN. 100 MEQ IV (04:29)
[2024-08-03 05:06] VITALS: BMI 36.3
[2024-08-03 06:51] LABS: Phosphorus 2.6 mg/dL (2.5-4.9)
[2024-08-03] MEDS: Pantoprazole Sodium 40 MG in 0.9% Normal Saline (100mL MB+) 100 ML 330 MG IV (08:50)
[2024-08-03 08:53] VITALS: BP 126/74; PULSE 70; RESP 14; TEMP 36.5; O2SAT 97
--- NOTE | 2024-08-03 10:34 | PCM.DC ---
Discharge Instructions Diet Discharge Diet: No restrictions Activity Discharge Activity: Return to Normal Activity Weight Bearing Status: Weight bearing as tolerated Dressing / Incision Call your doctor if you observe: Fever of 101 or Higher, Coldness, Increased Pain, Numbness or Tingling, Change in Color, Inability to urinate, Inability to have a bowel movement, Shortness of breath, Dizziness, Fainting spells, Swelling in the ankles, Chest pain, Prolonged hiccupping, Increased palpitations (irregular heartbeat) and Calf discomfort Follow Up Care When: IN 2 WEEKS Test Results: Test results from this visit will be discussed in further detail at your follow-up appointment, if applicable. Discharge Plan Admission Admit Date/Time: 08/01/24 20:25 Primary Reason for Your Visit: Pancreatitis. Attending Provider: Jasmeet Montoya Primary Care Provider: Dagmar Jorgensen Consulting Providers: Mundo Moore; Derek Finn Instructions Additional Instructions / Restrictions: Follow-up thyroid ultrasound with dairy nutritionist at [facility] endocrin[facility] [place] in [place]. Discharge Orders/Prescriptions Prescriptions: New pantoprazole [Protonix] 40 mg tablet,delayed release (DR/EC) 40 mg PO BID 30 Days Qty: 60 2RF ciprofloxacin HCl 500 mg tablet 500 mg PO BID 3 Days Qty: 6 0RF Referrals / Follow Up: Quincy Lion DO [Med Staff - Active Staff] - Within 1 Month (Large hiatus hernia, follow-up for pancreatitis) Dagmar Jorgensen, ADVERTISING ACCOUNT REPRESENTATIVE-C [Primary Care Provider] - Within 2 Weeks Disposition Disposition (needs filled in before D/C Order can be placed): Home, Self Care
--- NOTE | 2024-08-03 11:21 | CASEMGMT ---
ELIZ STOUT Assessment Face to Face with patient for initial transition planning/care coordination assessment. ELIZ STOUT introduced self and role at [facility], pt voices understanding. Pt is A&Ox4 and is resting comfortably in bed and is calm. Care providers, pharmacy, and demographics verified. Admitting dx: Acute Cystitis, Pancreatitis, CP LACE Strata: 1 PCP: Dagmar Jorgensen Specialists: Denies Preferred Pharmacy: P During this stay. Pt would like to do meds to bed Insurance: [place] M[employer] Prescription Benefit: Yes LNOK: Renay Sellers (H), Niraj Sellers (Son) Living Arrangements: Pt lives with her in a two story home with 5 steps to enter with a handrail ADLs/IADLs: Ind Transportation: self, DME: FWW, Cane. Denies needs HHC/SNF: Denies Pt?s goal: Home Plan: Home with pt and no additional needs. 6-click is 24. Pt was cleared by PT. Pt denies further questions or concerns at this time. Report given to TRAINING PROJECT MANAGERELIZ Jorgensen RN, CM
--- NOTE | 2024-08-03 14:29 | CHAPLAIN ---
Type of Pastoral Visit _x__ Initial Visit ___ Follow-up Visit ___ On-call Visit ___ General Patient Visit ___ Spiritual Assessment ___ Family Conference ___ Bereavement ___ Rapid Response ___ Code Blue ___ Other (describe below) Pastoral Care Referral From ___ Patient _x__ Family ___ Nurse ___ Physician ___ Supervisor Rod Placing ___ Benefits Sales Consultant ___ Other (describe below) Sacrament/Intervention ___ Active listening ___ Anointing ___ Confucianism ___ Bereavement ___ Communion ___ Caitlin exploration ___ ___ Life review _x__ Prayer ___ Reconciliation ___ Sacrament of Sick _x__ Supportive presence ___ Wedding ___ Other (describe below) Pastoral Comments patient had gone done for a test/procedure and daughter was in the room remaining behind; family member gives report and that the patient is able to go home today; daughter is expressive of the good help received and the jordan of having spiritual care; pt is a devout Episcopal and very active in her sabianist; daughter states that this visit would have meant much to the patient and that she would accept a prayer now in patient's absence;
[2024-08-03 14:47] VITALS: BP 149/89
--- NOTE | 2024-08-03 16:32 | PCM.DC.SUM ---
Providers Date of Admission: 08/01/24 Date of Discharge: 08/03/24 Primary Care Physician: ALEXY Bender Consultations 08/01/24 21:35 Consult: Gastroenterology Routine Consulting Provider: [facility] Reason for Consult: Acute Pancreatitis with Large Gastric hernia in posterior mediastinum. EMERGENT Consult: No MD Notified: Yes Date Notified: 08/02/24 Time Notified: 06:43 Method of Notification: Text Reason For Visit: ACUTE CYSTITIS, PANCREATITIS, PLEURITIC CHEST PAIN Diagnosis Discharge Diagnosis (1) Acute cystitis with hematuria: Status: Acute Code(s): N30.01 - Acute cystitis with hematuria (2) Leukocytosis: Status: Acute Code(s): D72.829 - Elevated white blood cell count, unspecified Qualifiers: Leukocytosis type: unspecified Qualified Code(s): D72.829 - Elevated white blood cell count, unspecified (3) Pancreatitis: Status: Acute Code(s): K85.90 - Acute pancreatitis without necrosis or infection, unspecified Qualifiers: Chronicity: acute Pancreatitis type: unspecified pancreatitis type Acute pancreatitis complication: no infection or necrosis Qualified Code(s): K85.90 - Acute pancreatitis without necrosis or infection, unspecified (4) Hypokalemia: Status: Acute Code(s): E87.6 - Hypokalemia (5) Thyroid nodule greater than or equal to 1 cm in diameter incidentally noted on imaging study: Status: Acute Code(s): E04.1 - Nontoxic single thyroid nodule (6) Obesity (BMI 30-39.9): Status: Acute Code(s): E66.9 - Obesity, unspecified Plan 68-year-old female was admitted for evaluation of Epigastric/upper abdominal pain along with shortness of breath for 3 days prior to admission. She did not had fever chills nausea vomiting or generalized bodyaches. She denied burning micturition. 1. Acute pancreatitis: Right upper quadrant shows multiple mobile gallstones but no clinical or sonographic evidence of acute cholecystitis. No pericholecystic fluid. Patient had MRCP which reported mild pancreatitis but no significant ductal dilatation, stricture but as per GI, patient has pancreatic deviation patient had mild elevated lipase which was normal. MRCP images reviewed and does not seem significant ductal abnormality. 2. UTI: Abnormal UA. Urine culture shows gram-negative sarah Citrobacter, 80,000?100,000 colonies. Patient had Zosyn while inpatient. Discharged on 3 more days of ciprofloxacin. 3. Atypical chest pain due to large hiatus hernia: Abdominal imaging shows large part of the stomach and thoracic cavity. Follow-up in GI clinic for further workup. With chronic saturations patient will be high risk for fundoplication surgery CTA chest negative for PE/dissection 4. Thyroid nodules TSH elevated. Free T4 within normal limits. Thyroid ultrasound shows 2 dominant nodules with enlarged right lobe of thyroid. Follow-up business objects report developer in [place] will need FACP although probably low suspicion for 5. Dysphagia Chronic probably due to large hiatus hernia with GERD symptoms. Advised conservative management. Patient discharged on pantoprazole 40 mg twice daily. Prescription given VTE prophylaxis: LMWH Discharge medication reconciliation done. Discharge follow-up instructions completed. Discharge process discussed with the patient and all questions were answered to patient's satisfaction. Follow with PCP in 1 to 2 weeks Total time spent, exact 35 minutes on discharge meds reconciliation, examination, coordination of care with nurses and ancillary staff, review of imaging and blood test and discussion with the patient on follow-up instructions. Microbiology Past 72 Hours 08/01/24 14:12 Urine, Clean Catch Urine Culture - Final Citrobacter koseri 08/01/24 14:07 Mucosa - Nose SARS-CoV-2, Influenza & RSV (PCR) - Final Laboratory Results 08/03/24 06:05: Phosphorus 2.6, Magnesium 2.0 Clinical Impression(s) from Imaging Studies Chest X-Ray 08/01/24 13:55 IMPRESSION: No active disease. Electronically Signed: Byron Suresh MD at 16:40 EDT , Abdomen/Pelvis CT 08/01/24 14:58 IMPRESSION: 1. Large gastric hernia in the posterior mediastinum. 2. Small nonenhancing low-attenuation lesion in the right anterior renal parenchyma is too small to confirm cystic or solid. ACR White Paper guidelines (Hussein, et al. JACR 2018; 15(2):264-273) suggest no follow-up is necessary. 3. Small calcified gallstones layering in the dependent portion of the nondilated gallbladder fossa without gallbladder wall thickening or pericholecystic edema. 4. No suspicious acute abnormality in the abdomen and pelvis. Electronically Signed: Roberto Webber MD at 16:08 EDT , Chest CTA 08/01/24 14:58 IMPRESSION: 1. No CTA evidence of pulmonary thromboemboli, thoracic aortic aneurysm or dissection. 2. No acute cardiopulmonary pathology. 3. Large gastric hernia in the posterior mediastinum. 4. And large right thyroid lobe containing multiple low-attenuation nodules. The dominant nodule measures 3.5 x 3.5 cm. ACR White Paper guidelines (Omar NicholsK, et al. JACR 2015;12(2):143-50) suggest further evaluation with thyroid ultrasound. Electronically Signed: Roberto Webber MD at 16:04 EDT , Gallbladder Ultrasound 08/01/24 16:23 IMPRESSION: 1. Multiple mobile gallstones. No sonographic Bah sign or ductal dilatation. No pericholecystic fluid. 2. Hepatomegaly without intrahepatic masses or ductal dilatation. 3. Normal appearance of the RIGHT kidney. 4. The pancreas is obscured due to shadowing bowel gas. MRCP 08/02/24 09:00 IMPRESSION: Gallstones. Acute pancreatitis. Thyroid Ultrasound 08/03/24 00:00 IMPRESSION: Enlarged right lobe thyroid with 2 dominant nodules which are of mild suspicion for malignancy. Due to their size fine-needle aspiration of both nodules should be considered. Medications at Discharge Home Medications ciprofloxacin HCl 500 mg tablet 500 mg PO BID 3 days #6 tabs 08/03/24 pantoprazole 40 mg tablet,delayed release (Protonix) 40 mg PO BID 30 days #60 tabs 08/03/24 Weight / BMI Weight Weight: 211 lb 10.3 oz Body Mass Index (BMI) 36.3 ABG / Lab / Microbiology Data 08/02/24 05:16 08/02/24 05:16 Laboratory: Laboratory Results - last 24 hr 08/03/24 06:05: Phosphorus 2.6, Magnesium 2.0 Microbiology: Microbiology 08/01/24 14:12 Urine, Clean Catch Urine Culture - Final Citrobacter koseri 08/01/24 14:07 Mucosa - Nose SARS-CoV-2, Influenza & RSV (PCR) - Final Radiography Diagnostic Testing: Radiology Impression Thyroid Ultrasound 08/03/24 00:00 IMPRESSION: Enlarged right lobe thyroid with 2 dominant nodules which are of mild suspicion for malignancy. Due to their size fine-needle aspiration of both nodules should be considered. Electronically Signed: Christian Jurado MD at 15:36 EDT Reading Location ID and State: [facility] / [place] Tel , Service support , D/C Instructions Discharge Diet: No restrictions Weight Bearing Status: Weight bearing as tolerated Call your doctor if you observe: Fever of 101 or Higher, Coldness, Increased Pain, Numbness or Tingling, Change in Color, Inability to urinate, Inability to have a bowel movement, Shortness of breath, Dizziness, Fainting spells, Swelling in the ankles, Chest pain, Prolonged hiccupping, Increased palpitations (irregular heartbeat) and Calf discomfort When: IN 2 WEEKS Meaningful Use Info Meaningful Use Meaningful Use Diagnoses (Choose all that apply): None applicable Ischemic Stroke Statin Dosing Therapy Reference: STATIN DOSE THERAPY REFERENCE: * Patients > 75 years receive moderate or high dose statin therapy. * Patients 75 years or YOUNGER should receive HIGH intensity statin dose unless contraindicated. You will be required to document reason for non-treatment if statin daily dose does not meet guidelines. HIGH DOSE STATIN THERAPY DAILY Atorvastatin > than or = to 40 mg Rosuvastatin > than or = to 20 mg Amlodipine + Atorvastatin > than or = to 2.5/40 mg Ezetimibe + Simvastatin 10/80 mg Simvastatin 80mg Discharge Plan Admission Admit Date/Time: 08/01/24 20:25 Primary Reason for Your Visit: Pancreatitis. Attending Provider: Jasmeet Montoya Primary Care Provider: Dagmar Jorgensen Consulting Providers: Mundo Moore; Derek Finn Instructions Additional Instructions / Restrictions: Follow-up thyroid ultrasound with business objects report developer at [facility] end[facility] [place] in [place]. Discharge Orders/Prescriptions Prescriptions: New pantoprazole [Protonix] 40 mg tablet,delayed release (DR/EC) 40 mg PO BID 30 Days Qty: 60 2RF ciprofloxacin HCl 500 mg tablet 500 mg PO BID 3 Days Qty: 6 0RF Referrals / Follow Up: [facility] [Provider Group] - Within 2 Weeks Quincy Lion DO [Med Staff - Active Staff] - Within 1 Month (Large hiatus hernia, follow-up for pancreatitis) Dagmar Jorgensen THERAPEUTIC PROGRAM WORKER-C [Primary Care Provider] - Within 2 Weeks Disposition Disposition (needs filled in before D/C Order can be placed): Home, Self Care Charges/Coding Visit Charges Inpatient E&M: 11227 Disch Hosp >30min
== END 2024-08-03 14:38 | disposition home or self-care (01) | DRG 689 ==
LOC: ED 20:06 → PCU 08-02 07:06
PROVIDERS: Nurse Practitioner; Admitting Provider Internal Medicine; Emergency Provider Surgery; PCP Nurse Practitioner Family; Visit Provider Internal Medicine
DX: N30.01 Acute cystitis with hematuria (principal); K85.90 Acute pancreatitis without necrosis or infection, unspecified; E66.9 Obesity, unspecified; E87.6 Hypokalemia; K44.9 Diaphragmatic hernia without obstruction or gangrene; K80.20 Calculus of gallbladder without cholecystitis without obstruction; Z68.36 Body mass index [BMI] 36.0-36.9, adult; R06.02 Shortness of breath; E86.0 Dehydration; E04.2 Nontoxic multinodular goiter; R13.10 Dysphagia, unspecified
CPT/HCPCS: 36415; 71046; 71275; 74177; 74181; 76536; 76705; 80053; 81001; 83690; 83735; 84100; 84439; 84443; 84484; 85025; 85379; 87077; 87086; 87088; 87186; 87631; 92610; 93005; 94668; 96365; 96366; 96367; 96368; 96372; 96375; 96376; 97161; 97802; 99221; 99284; Q9967; A4216; G0378; J2405